=== PATIENT | female | born 1955 | race Caucasian/White ===

== ENCOUNTER → 2023-07-14 | Outpatient (CLI) | payer MEDICARE, MEDICAID, SELFPAY ==
--- NOTE | 2023-07-14 12:53 | NEURO ---
NCS and/or EMG Patient Report Ordering Doctor: Magdalena Gurrola DATE OF SERVICE: 07/14/23 Marybeth presents for electrodiagnostic testing of the right upper limb. She reports numbness and tingling in the right hand. Electrodiagnostic findings: Right median motor nerve demonstrates prolonged latency with normal amplitude and reduced conduction velocity. Right ulnar motor nerve demonstrates normal distal latency and amplitude with a greater than 20% drop in amplitude across the elbow. Prolonged right median F?wave is noted. Prolonged right median sensory latency at the wrist. Absent right median palmar response. Needle EMG testing was performed in the right upper limb. All muscles tested showed no evidence of denervation with normal motor unit action potentials. Electrodiagnostic impression: This is an abnormal study in the right upper limb. 1. Electrodiagnostic findings demonstrate right-sided median mononeuropathy. This is consistent with a moderate right carpal tunnel syndrome. 2. Electrodiagnostic findings demonstrate right-sided ulnar mononeuropathy. This is consistent with a mild right cubital tunnel syndrome. 3. Electrodiagnostic evidence is noted for cervical radiculopathy. Multi Select Codes Neurology Neurology Interp Codes: 33170-66 Musc test done w/n test comp (interp) and 80568-36 Nrv cndj test 7-8 studies (interp)
== END | disposition home or self-care (01) ==
PROVIDERS: PCP Family Medicine; Visit Provider Nurse Practitioner Family
DX: R20.2 Paresthesia of skin (principal); R20.0 Anesthesia of skin
CPT/HCPCS: 95886; 95910